=== PATIENT | male | born 1970 | race Caucasian/White ===

== ENCOUNTER → 2024-03-27 13:36 | Outpatient (REF) | payer OTHER, SELFPAY | LOC: MRI 3T 13:36 | PROVIDERS: ATTENDING PHYSICIAN Orthopaedic Surgery Hand Surgery; FAMILY PHYSICIAN Physician Assistant Medical | DX: S43.431D Superior glenoid labrum lesion of right shoulder, subsequent encounter (principal); M77.11 Lateral epicondylitis, right elbow | CPT/HCPCS: 23350; 73040; 73222 ==

== ENCOUNTER → 2024-07-25 12:37 | Outpatient (REF) | payer OTHER, SELFPAY | LOC: PAVMRI 12:37 | PROVIDERS: ATTENDING PHYSICIAN Orthopaedic Surgery Orthopaedic Surgery of the Spine; FAMILY PHYSICIAN Physician Assistant Medical | DX: M48.062 Spinal stenosis, lumbar region with neurogenic claudication (principal) | CPT/HCPCS: 72158; A9575 ==

== ENCOUNTER → 2025-03-22 07:32 | Outpatient (REF) | payer OTHER, SELFPAY | LOC: RAD 07:32 | PROVIDERS: ATTENDING PHYSICIAN Physician Assistant Medical | DX: R10.32 Left lower quadrant pain (principal) | CPT/HCPCS: 74177; Q9967 ==